=== PATIENT | male | born 1995 | race Caucasian/White ===

== ENCOUNTER 2024-05-27 10:07 | Inpatient (IN) | payer SELFPAY ==
[~2024-05-27] VITALS: Ht 185.4 cm; Wt 134.2 kg
[2024-05-27 11:57] LABS: BASOPHILS % 0.4 % (0.0-2.0); EOSINOPHILS % 0.5 % (0.0-5.0); HEMATOCRIT. 42.8 % (42.0-52.0); HEMOGLOBIN. 14.7 g/dL (14.0-18.0); MEAN CORPUSCULAR HGB CONC 34.3 g/dL (31.0-37.0); MEAN CORPUSCULAR VOLUME 81.8 fL (80.0-94.0); MEAN PLATELET VOLUME 7.6 fl (7.4-10.4); MONOCYTES % 7.3 % (2.0-8.0); NEUTROPHILS % 75.8 % (40.0-76.0); PLATELET 395 x1000/uL (130-400); RED BLOOD CELL COUNT 5.23 mill/uL (4.7-6.1); RED CELL DISTRIBUTION WIDTH 13.5 % (11.6-14.6); WHITE BLOOD COUNT 14.8 x1000/uL (4.5-11.0)
[2024-05-27 12:04] LABS: CHLORIDE 106 mEq/L (98-107); POTASSIUM 4.3 mEq/L (3.5-5.1); SODIUM 139 mEq/L (136-145)
[2024-05-27 12:05] LABS: CALCIUM 9.8 mg/dL (8.7-10.4); CARBON DIOXIDE 27 mEq/L (21-32)
[2024-05-27 12:10] LABS: CREATININE 1.1 mg/dL (0.6-1.3); GLUCOSE 99 mg/dL (70-105); UREA NITROGEN BLOOD 8 mg/dL (9-23)
[2024-05-27 12:12] LABS: ALANINE AMINOTRANSFERASE 34 IU/L (10-49); ALBUMIN 4.9 g/dL (3.2-4.8); ASPARTATE AMINOTRANSFERASE 19 IU/L (<34); BILIRUBIN TOTAL 0.5 mg/dL (0.1-1.0)
[2024-05-27 12:13] LABS: PROTEIN TOTAL 8.1 g/dL (6.0-8.3)
[2024-05-27] MEDS ORDERED: CEFTRIAXONE 1GM/50ML 50 ML IV ONE (12:45)
[2024-05-27] MEDS ORDERED: VANCOMYCIN 1G PREMIX 200 ML IV ONE (12:45)
[2024-05-27] MEDS: SODIUM CHLORIDE 0.9% 1000ML BAG (SEPSIS BOLUS) IV ONE (16:00)
[2024-05-27] MEDS: CEFTRIAXONE 1GM/50ML 50 ML IV NR (16:34)
[2024-05-27] MEDS: VANCOMYCIN 1G PREMIX 200 ML IV NR (17:11)
[2024-05-27] MEDS ORDERED: ONDANSETRON HCL 4MG/2ML INJ IV PRN (18:30)
[2024-05-27] MEDS ORDERED: IPRATROPIUM/ALBUTEROL 0.5-3(2.5)MG/3ML NEB HHN PRN (18:30)
[2024-05-27] MEDS ORDERED: ACETAMINOPHEN 325MG TABLET PO PRN (18:30)
[2024-05-28] MEDS: METRONIDAZOLE 500 MG PREMIX 100 ML IV SCH ×2 (01:32→16:12)
[2024-05-28] MEDS: FAMOTIDINE 20MG TABLET PO SCH (01:32)
[2024-05-28] MEDS: IOHEXOL-300 100 ML BOTTLE ONE (01:43)
[2024-05-28 09:00] LABS: PROTHROMBIN TIME 10.9 sec (9.6-11.0)
[2024-05-28 09:05] LABS: CARBON DIOXIDE 26 mEq/L (21-32); CHLORIDE 103 mEq/L (98-107); POTASSIUM 3.9 mEq/L (3.5-5.1); SODIUM 136 mEq/L (136-145)
[2024-05-28 09:06] LABS: CALCIUM 9.3 mg/dL (8.7-10.4)
[2024-05-28 09:09] LABS: CREATINE KINASE MB FRACTION < 0.5 ng/mL (0.5-3.6)
[2024-05-28 09:11] LABS: CHOLESTEROL 145 mg/dL (<200); CREATINE KINASE 106 IU/L (46-171); CREATININE 0.9 mg/dL (0.6-1.3); GLUCOSE 87 mg/dL (70-105); TRIGLYCERIDE 110 mg/dL (0-150); UREA NITROGEN BLOOD 7 mg/dL (9-23)
[2024-05-28 09:12] LABS: LDL CHOLESTEROL 98 mg/dL (5-100)
[2024-05-28 09:13] LABS: HDL CHOLESTEROL 33 mg/dL (>55); T4 FREE 1.22 ng/dL (0.89-1.76); THYROID STIMULATING HORMONE 1.03 uIU/mL (0.55-4.78)
[2024-05-28 09:22] LABS: TROPONIN I HIGH SENSITIVITY < 4 ng/L (3.0-53)
[2024-05-28 10:24] LABS: ERYTHROCYTE SEDIMENTATION RATE 21 mm/hr (0-15)
[2024-05-28 10:28] LABS: BASOPHILS % 0.5 % (0.0-2.0); EOSINOPHILS % 1.1 % (0.0-5.0); HEMOGLOBIN. 13.8 g/dL (14.0-18.0); LYMPHOCYTES % 24.1 % (20.0-50.0); MEAN CORPUSCULAR HEMOGLOBIN 27.9 pg (28.0-32.0); MEAN CORPUSCULAR HGB CONC 34.5 g/dL (31.0-37.0); MEAN CORPUSCULAR VOLUME 80.9 fL (80.0-94.0); MEAN PLATELET VOLUME 8.3 fl (7.4-10.4); MONOCYTES % 8.9 % (2.0-8.0); NEUTROPHILS % 65.4 % (40.0-76.0); PLATELET 335 x1000/uL (130-400); RED BLOOD CELL COUNT 4.95 mill/uL (4.7-6.1); RED CELL DISTRIBUTION WIDTH 13.3 % (11.6-14.6); WHITE BLOOD COUNT 10.3 x1000/uL (4.5-11.0)
[2024-05-28 12:00] VITALS: BP 124/71; PULSE 76; RESP 19; TEMP 36.22512; O2SAT 98
[2024-05-28 12:40] LABS: CREATINE KINASE 106 IU/L (46-171); CREATINE KINASE MB FRACTION < 0.5 ng/mL (0.5-3.6)
[2024-05-28 13:18] LABS: TROPONIN I HIGH SENSITIVITY < 4 ng/L (3.0-53)
[2024-05-28 14:00] VITALS: BP 121/60; PULSE 74; RESP 20; TEMP 36.2512
[2024-05-28 16:00] VITALS: BP 121/60; PULSE 70; RESP 20; TEMP 36.22512; O2SAT 97
[2024-05-28] MEDS ORDERED: CEFTRIAXONE 2GM/50ML 50 ML IV SCH (16:00)
[2024-05-28] MEDS: CEFTRIAXONE 2GM/50ML 50 ML IV SCH (18:04)
[2024-05-28] MEDS ORDERED: MIDAZOLAM HCL 2 MG/2 ML VIAL ONE ×2 (19:23→19:51)
[2024-05-28] MEDS ORDERED: ONDANSETRON HCL 4MG/2ML INJ ONE (19:25)
[2024-05-28] MEDS ORDERED: PHENYLEPHRINE HCL 10MG/ML 1ML IV ONE (19:25)
[2024-05-28] MEDS ORDERED: PROPOFOL 200MG/20ML VIAL IV ONE ×2 (19:26→20:08)
[2024-05-28] MEDS ORDERED: KETOROLAC 30MG/ML VIAL ONE (19:32)
[2024-05-28] MEDS ORDERED: FENTANYL CITRATE/PF 50MCG/ML 2ML VIAL ONE (19:33)
[2024-05-28] MEDS ORDERED: KETAMINE HCL 50 MG/ML 10ML ONE (19:34)
[2024-05-28] MEDS ORDERED: ACETAMINOPHEN 500MG TABLET ONE (19:35)
[2024-05-28] MEDS ORDERED: BUPIVACAINE HCL/PF 0.5% (5MG/ML) 10ML ONE (20:10)
[2024-05-28] MEDS ORDERED: ONDANSETRON HCL 4MG/2ML INJ IV PRN (20:15)
[2024-05-28] MEDS ORDERED: HYDROMORPHONE HCL/PF 1MG/ML INJ IV PRN (20:15)
[2024-05-28] MEDS ORDERED: NALOXONE HCL 0.4MG/ML VIAL IV PRN (20:30)
[2024-05-28] MEDS ORDERED: HYDROCODONE/ACETAMINOPHEN 10/325MG TABLET PO PRN (20:30)
[2024-05-28 23:03] LABS: HEMATOCRIT 38.6 % (42.0-52.0); HEMOGLOBIN 13.2 g/dL (14.0-18.0); MEAN CORPUSCULAR HEMOGLOBIN 28.1 pg (28.0-32.0); MEAN CORPUSCULAR HGB CONC 34.3 g/dL (31.0-37.0); MEAN CORPUSCULAR VOLUME 82.1 fL (80.0-94.0); PLATELET 342 x1000/uL (130-400); RED BLOOD CELL COUNT 4.71 mill/uL (4.7-6.1); RED CELL DISTRIBUTION WIDTH 13.3 % (11.6-14.6); WHITE BLOOD COUNT 10.6 x1000/uL (4.5-11.0)
[2024-05-29] VITALS: BP 109/46; PULSE 59; RESP 19; TEMP 36.33624; O2SAT 100
[2024-05-29 04:00] VITALS: BP 102/41; PULSE 62; RESP 20; TEMP 36.33624; O2SAT 99
[2024-05-29 08:00] VITALS: BP 115/54; PULSE 75; RESP 18; TEMP 36.22512; O2SAT 100
[2024-05-29 12:00] VITALS: BP 120/57; PULSE 71; RESP 18; TEMP 36.114; O2SAT 100
[2024-05-29] MEDS ORDERED: METR-167 MT (14:49)
[2024-05-29] MEDS ORDERED: CEFP100T9 MT (14:49)
[2024-05-29 16:00] VITALS: BP 140/64; PULSE 97; RESP 18; TEMP 36.33624; O2SAT 99
[2024-05-29 16:34] VITALS: BP 140/64; PULSE 97; TEMP 97.4; O2SAT 99
[2024-05-29] MEDS ORDERED: METRONIDAZOLE 500MG TABLET PO SCH (22:00)
== END 2024-05-29 17:55 | disposition home or self-care (01) | DRG 226 ==
LOC: ER 10:07 → 5WST 16:29 → EDBEDREQ 16:41 → EDBEDREQTM 16:41 → 6WST 05-28 13:58
PROVIDERS: ADMIT Preventive Medicine Clinical Informatics; ATTEND Preventive Medicine Clinical Informatics
PROC: 0D9P0ZZ Drainage of Rectum, Open Approach (ICD-10-PCS; principal; 2024-05-28)
DX: K61.2 Anorectal abscess (principal); E66.01 Morbid (severe) obesity due to excess calories; E78.5 Hyperlipidemia, unspecified; Z68.36 Body mass index [BMI] 36.0-36.9, adult
CPT/HCPCS: 36415; 71045; 74177; 80048; 80053; 80061; 82550; 82553; 83036; 83605; 84145; 84439; 84443; 84484; 85025; 85027; 85651; 86850; 86900; 87070; 87075; 99291; J0696; J1885; J2250; J2405; J2704; J3010; J3370; J3490; J7030; Q9967